=== PATIENT | male | born 1965 | race Native Hawaiian/Other Pacific Islander ===

== ENCOUNTER 2019-10-18 19:32 | Observation (INO) | payer SELFPAY ==
[~2019-10-18] VITALS: Ht 177 cm; Wt 117.4 kg
[2019-10-18] MEDS ORDERED: NITROGLYCERIN 0.4 MG SL TABS BTL 25'S SL PRN (19:45)
[2019-10-18] MEDS ORDERED: ASPIRIN 81 MG CHEW (CHILDREN'S ASA) PO ONE (19:45)
[2019-10-18 19:52] LABS: BASOPHILS % (AUTO) 0 % (0-10); EOSINOPHILS # (AUTO) 0.3 10^3/uL (0.0-0.3); EOSINOPHILS % (AUTO) 4 % (0-10); HEMATOCRIT 47 % (40-54); HEMOGLOBIN 16.2 G/DL (13.3-17.7); LYMPHOCYTES # (AUTO) 2.2 X 10^3 (1.0-4.0); LYMPHOCYTES % (AUTO) 32 % (12-44); MEAN CORPUSCULAR HEMOGLOBIN 32 PG (25-34); MEAN CORPUSCULAR HGB CONC 35 G/DL (32-36); MEAN CORPUSCULAR VOLUME 91 FL (80-99); MEAN PLATELET VOLUME 10.8 FL (7.4-10.4); MONOCYTES # (AUTO) 0.6 X 10^3 (0.0-1.0); MONOCYTES % (AUTO) 8 % (0-12); NEUTROPHILS # (AUTO) 3.8 X 10^3 (1.8-7.8); NEUTROPHILS % (AUTO) 56 % (42-75); PLATELET COUNT 119 10^3/uL (130-400); RED CELL DISTRIBUTION WIDTH 14.5 % (10.0-14.5); WHITE BLOOD COUNT 6.8 10^3/uL (4.3-11.0)
--- NOTE | 2019-10-18 19:55 | ED Chest Pain ---
General Chief Complaint: Chest Pain Stated Complaint: CHEST PAIN Source: patient (SOMEWHAT LIMITED HISTORIAN) History of Present Illness Date Seen by Provider: Oct 18, 2019 Time Seen by Provider: 19:38 Initial Comments PT ARRIVES VIA POV C/O CHEST PAIN STATES PAIN BEGAN AROUND MIDNIGHT--WAS ALREADY AWAKE WHEN PAIN BEGAN WENT TO SLEEP AND WOKE UP AT 0900 AND PAIN WAS STILL THERE PT UNABLE TO RATE PAIN PT UNABLE TO STATE IF PAIN COMES AND GOES OR IS CONSTANT PT IS UNABLE TO STATE IF ANYTHING WORSENS OR IMPROVES PAIN ON ARRIVAL DENIES SHORTNESS OF BREATH HAS HAD NONPRODUCTIVE COUGH FOR 1 MONTH, AND LATER, HE DOES STATE THAT COUGHING MAKES CHEST HURT, DOES ANY MOVING OF HIS UPPER BODY NO FEVER NO NAUSEA/VOMITING NO OTHER RELEVANT INFORMATION OBTAINABLE FROM PT PCP: --PT STATES HE IS FROM [facility]--HAD MEDICATIONS REFILLED BY ARNAUD JULIAN IN [place]. PT SIMPLY WILL NOT STATE WHETHER HE LIVES HERE, OR IF HE IS VISITING OR HOW LONG HE HAS BEEN HERE Allergies and Home Medications Allergies Coded Allergies: Penicillins (Verified Allergy, Unknown, 10/18/19) Patient Home Medication List Home Medication List Reviewed: Yes Review of Systems Review of Systems Constitutional: no symptoms reported; No chills, No diaphoresis, No dizziness, No fever; other (VERY LIMITED INFORMATION FROM PT) EENTM: No Symptoms Reported Respiratory: See HPI, Cough; Denies Shortness of Air Cardiovascular: See HPI, Chest Pain Gastrointestinal: Denies Nausea, Denies Vomiting Past Eqwhlgp-[id number]-Tmnldn Hx Past Med/Social Hx: Reviewed and Corrections made Patient Social History Alcohol Use: Denies Use Recreational Drug Use: Yes (THC) Drug of Choice: THC Smoking Status: Former Smoker (SMOKED 1 PPD, QUIT 15 YEARS AGO, PER PT ON 10/18/19) Type Used: Cigarettes Recent Foreign Travel: No Contact w/Someone Who Travel: No Past Medical History Surgeries: Yes Thyroidectomy Respiratory: No Cardiac: Yes Hypertension Neurological: No Genitourinary: No Gastrointestinal: No Musculoskeletal: No Endocrine: Yes (S/P THYROIDECTOMY--STATES WAS NOT CANCER, BUT UNABLE TO STATE WHY REMOVED) Hypothyroidsim HEENT: No Cancer: No Psychosocial: No Integumentary: No Blood Disorders: No Physical Exam Vital Signs Vital Signs - First Documented 10/18/19 19:40 Temp 36.7 Pulse 80 Resp 18 B/P (MAP) 157/99 (118) O2 Delivery Room Air Capillary Refill : Height, Weight, BMI Height: '" Weight: lbs. oz. kg; BMI Method: General Appearance: No Apparent Distress, Obese HEENT: PERRL/EOMI Neck: Full Range of Motion, Normal Inspection, Non Tender, Supple; No Carotid Bruit, No JVD Respiratory: Chest Non Tender, Normal Breath Sounds, No Accessory Muscle Use, No Respiratory Distress Cardiovascular: Regular Rate, Rhythm, No JVD, No Murmur, Normal Peripheral Pulses Gastrointestinal: No Organomegaly, Non Tender, Soft Extremity: Normal Capillary Refill, Normal Range of Motion, Non Tender, No Calf Tenderness, Pedal Edema (1+ BILATERALLY) Neurologic/Psychiatric: Alert, Oriented x3, No Motor/Sensory Deficits, Normal Mood/Affect, electronic operator II-XII Norm as Tested Skin: Normal Color, Warm/Dry; No Rash Progress/Results/Core Measures Results/Orders Lab Results Laboratory Tests Test 10/18/19 19:42 10/18/19 23:10 Range/Units White Blood Count 6.8 4.3-11.0 10^3/uL Red Blood Count 5.10 4.35-5.85 10^6/uL Hemoglobin 16.2 13.3-17.7 G/DL Hematocrit 47 40-54 % Mean Corpuscular Volume 91 80-99 FL Mean Corpuscular Hemoglobin 32 25-34 PG Mean Corpuscular Hemoglobin Concent 35 32-36 G/DL Red Cell Distribution Width 14.5 10.0-14.5 % Platelet Count 119 L 130-400 10^3/uL Mean Platelet Volume 10.8 H 7.4-10.4 FL Neutrophils (%) (Auto) 56 42-75 % Lymphocytes (%) (Auto) 32 12-44 % Monocytes (%) (Auto) 8 0-12 % Eosinophils (%) (Auto) 4 0-10 % Basophils (%) (Auto) 0 0-10 % Neutrophils # (Auto) 3.8 1.8-7.8 X 10^3 Lymphocytes # (Auto) 2.2 1.0-4.0 X 10^3 Monocytes # (Auto) 0.6 0.0-1.0 X 10^3 Eosinophils # (Auto) 0.3 0.0-0.3 10^3/uL Basophils # (Auto) 0.0 0.0-0.1 10^3/uL Prothrombin Time 13.3 12.2-14.7 SEC INR Comment 1.0 0.8-1.4 Activated Partial Thromboplast Time 33 24-35 SEC Sodium Level 139 135-145 MMOL/L Potassium Level 4.0 3.6-5.0 MMOL/L Chloride Level 106 98-107 MMOL/L Carbon Dioxide Level 22 21-32 MMOL/L Anion Gap 11 5-14 MMOL/L Blood Urea Nitrogen 11 7-18 MG/DL Creatinine 1.03 0.60-1.30 MG/DL Estimat Glomerular Filtration Rate > 60 BUN/Creatinine Ratio 11 Glucose Level 94 70-105 MG/DL Calcium Level 9.5 8.5-10.1 MG/DL Corrected Calcium 9.2 8.5-10.1 MG/DL Magnesium Level 1.9 1.6-2.4 MG/DL Total Bilirubin 0.6 0.1-1.0 MG/DL Aspartate Amino Transf (AST/SGOT) 38 H 5-34 U/L Alanine Aminotransferase (ALT/SGPT) 37 0-55 U/L Alkaline Phosphatase 80 40-136 U/L Total Creatine Kinase 659 H 30-200 U/L Creatine Kinase MB 6.4 <6.6 NG/ML Myoglobin 153.2 H 10.0-92.0 NG/ML Troponin I < 0.028 < 0.028 <0.028 NG/ML B-Type Natriuretic Peptide < 10.0 <100.0 PG/ML Total Protein 8.8 H 6.4-8.2 GM/DL Albumin 4.4 3.2-4.5 GM/DL Amylase Level 81 25-125 U/L Lipase 14 8-78 U/L Micro Results Microbiology 10/18/19 Influenza Types A,B Antigen (TYSON) - Final, Complete My Orders Orders - HI ANNE DO Cbc With Automated Diff (10/18/19 19:45) Magnesium (10/18/19 19:45) Chest 1 View, Ap/Pa Only (10/18/19 19:45) Ekg Tracing (10/18/19 19:45) Comprehensive Metabolic Panel (10/18/19 19:45) Myoglobin Serum (10/18/19 19:45) Protime With Inr (10/18/19 19:45) Partial Thromboplastin Time (10/18/19 19:45) O2 (10/18/19 19:45) Monitor-Rhythm Ecg Trace Only (10/18/19 19:45) Ed Iv/Invasive Line Start (10/18/19 19:45) Creatine Kinase (10/18/19 19:45) Creatine Kinase Mb (10/18/19 19:45) Lipase (10/18/19 19:45) Amylase (10/18/19 19:45) BNP (10/18/19 19:45) Troponin I (10/18/19 19:45) Nitroglycerin 0.4 Mg Btl 25's (Nitrostat (10/18/19 19:45) Aspirin Chewable Tablet (Baby Aspirin Ch (10/18/19 19:45) Ct Angio Chest W (10/18/19 21:16) Influenza A And B Antigens (10/18/19 21:16) Iohexol Injection (Omnipaque 350 Mg/Ml 1 (10/18/19 21:30) Received Contrast (Hold Metformin- Contr (10/18/19 21:30) Ns (Ivpb) (Sodium Chloride 0.9% Ivpb Bag (10/18/19 21:30) Ketorolac Injection (Toradol Injection) (10/18/19 22:30) Troponin I (10/18/19 22:41) Ekg Tracing (10/18/19 22:41) Enoxaparin Injection (Lovenox Injection) (10/18/19 23:45) Pantoprazole Injection (Protonix Injecti (10/18/19 23:45) Medications Given in ED Current Medications Medications Dose Ordered Sig/Denia Route Start Time Stop Time Status Last Admin Dose Admin Aspirin 324 mg ONCE ONCE PO 10/18/19 19:45 10/18/19 19:48 DC 10/18/19 19:53 324 MG Enoxaparin Sodium 100 mg ONCE ONCE SC 10/18/19 23:45 10/18/19 23:46 DC 10/18/19 23:50 100 MG Iohexol 100 ml ONCE ONCE IV 10/18/19 21:30 10/18/19 21:31 DC 10/18/19 21:50 100 ML Ketorolac Tromethamine 30 mg ONCE ONCE IVP 10/18/19 22:30 10/18/19 22:31 DC 10/18/19 22:45 30 MG Nitroglycerin 0.4 mg UD PRN SL 10/18/19 19:45 10/19/19 02:40 DC 10/18/19 19:53 0.4 MG Pantoprazole 40 mg ONCE ONCE IV 10/18/19 23:45 10/18/19 23:46 DC 10/18/19 23:49 40 MG Sodium Chloride 100 ml ONCE ONCE IV 10/18/19 21:30 10/18/19 21:31 DC 10/18/19 21:50 80 ML Vital Signs/I&O 10/18/19 10/18/19 19:40 19:40 Temp 36.7 Pulse 80 Resp 18 B/P (MAP) 157/99 (118) O2 Delivery Room Air Progress Progress Note : Progress Note GIVEN ASPIRIN AND NTG X 1--DID HAVE DROP IN BP FROM 150 SYSTOLIC DOWN TO 110, AND PT STATES NO IMPROVEMENT IN PAIN, SO OTHER NTG DOSES HELD PT LATER GIVEN TORADOL WITH MUCH IMPROVEMENT IN PAIN NO OTHER COMPLAINTS FOR REMAINDER OF ER STAY DID 3 HOUR REPEAT EKG AND TROPONIN, AND ARE NORMAL/UNCHANGED PT'S DAUGHTER ARRIVES MUCH LATER, SHORTLY PRIOR TO ADMIT, AND SHE STATES THAT HE IS HERE FROM [facility]" BECAUSE HIS DAUGHTER RECENTLY AFTER GIVING ( SHE 10/10/19 AND AND VISITATION IS THIS ) Initial ECG Impression Date: Oct 18, 2019 Initial ECG Impression Time: 19:36 Initial ECG Rate: 75 Initial ECG Rhythm: Normal Sinus Initial ECG Impression: 1st Degree AV Block Initial ECG Comparisson: No Previous ECG Available EKG : EKG Time: 22:48 Rate: 63 Rhythm: Normal Sinus ECG Comparisson: Unchanged ECG Impression: 1st Degree AV Block Diagnostic Imaging Comments CXR--NO ACUTE PROCESS, PENDING RADIOLOGIST REVIEW CT CHEST ANGIOGRAM--NO P.E. OR ACUTE PROCESS. + GALLSTONES WITHOUT ACUTE CHOLECYSTITIS, PER RADIOLOGIST REPORT AT 2205 Reviewed: Reviewed by Me Departure Communication (Admissions) 1972--SPOKE WITH DR. ROSARIO, HOSPITALIST, ACCEPTS PT FOR ADMIT. Impression Primary Impression: Chest pain Additional Impressions: HTN (hypertension) Gallstones Disposition: ADMITTED INPATIENT Condition: Improved Admissions Decision to Admit Reason: Admit from ER (General) Decision to Admit/Date: Oct 19, 2019 Time/Decision to Admit Time: 23:45 Departure-Patient Inst. Referrals: NO,LOCAL PHYSICIAN (PCP) Primary Care Physician HI ANNE DO Oct 18, 2019 19:55
[2019-10-18 20:01] LABS: PROTHROMBIN TIME PATIENT 13.3 SEC (12.2-14.7)
[2019-10-18 20:21] LABS: ALANINE AMINOTRANSFERASE 37 U/L (0-55); ALBUMIN 4.4 GM/DL (3.2-4.5); ALKALINE PHOSPHATASE 80 U/L (40-136); AMYLASE 81 U/L (25-125); BILIRUBIN,TOTAL 0.6 MG/DL (0.1-1.0); BUN/CREATININE RATIO 11; CALCIUM 9.5 MG/DL (8.5-10.1); CARBON DIOXIDE 22 MMOL/L (21-32); CHLORIDE 106 MMOL/L (98-107); CREATINE KINASE 659 U/L (30-200); CREATININE SERUM 1.03 MG/DL (0.60-1.30); GFR ESTIMATED > 60; GLUCOSE 94 MG/DL (70-105); LIPASE 14 U/L (8-78); MAGNESIUM 1.9 MG/DL (1.6-2.4); SODIUM 139 MMOL/L (135-145); TOTAL PROTEIN 8.8 GM/DL (6.4-8.2)
[2019-10-18 20:28] LABS: CREATINE KINASE MB 6.4 NG/ML (<6.6)
--- NOTE | 2019-10-18 21:11 | Diagnostic Imaging Report ---
INDICATION: Chest pain. EXAMINATION: Frontal chest was obtained at 9:00 p.m. FINDINGS: Heart and mediastinal silhouette are normal in appearance. The lungs are clear. There is no pneumothorax or pleural fluid. IMPRESSION: Negative chest. Dictated by: Dictated on workstation # [id number]
[2019-10-18] MEDS ORDERED: NS 100 ML (IVPB) BAG IV ONE (21:30)
[2019-10-18] MEDS ORDERED: IOHEXOL 350 MG/ML 100 ML (OMNIPAQUE 350) VIAL IV ONE (21:30)
[2019-10-18] MEDS ORDERED: HOLD METFORMIN - RECEIVED CONTRAST 20 ML VIAL IV SCH (21:30)
--- NOTE | 2019-10-18 22:00 | Diagnostic Imaging Report ---
INDICATION: Chest pain TECHNIQUE: Multiple contiguous axial images were obtained through the chest after uneventful bolus administration of intravenous contrast. 3D reconstructed CTA MIP acquisitions were also performed. Auto Exposure Controls were utilized during the CT exam to meet ALARA standards for radiation dose reduction. There is no prior study for comparison. The pulmonary parenchymal vessels are well-opacified with no CT evidence of pulmonary emboli. The thoracic aorta shows no evidence of aneurysm or dissection. There are coronary artery calcifications present. There is no pleural or pericardial fluid. There are incidental gallstones. There is no mediastinal or hilar adenopathy. There is no chest wall lesion. Lung parenchymal windows show no infiltrates or focal lesions. IMPRESSION: CTA chest shows no evidence of pulmonary emboli or aortic dissection or aneurysm. Coronary artery calcifications are noted which are fairly extensive. There is no acute pulmonary infiltrate. There are incidental gallstones in the gallbladder. There is a probable cyst in the right kidney. Dictated by: Dictated on workstation # [id number]
[2019-10-18] MEDS ORDERED: KETOROLAC 30 MG/ML VIAL IVP ONE (22:30)
--- NOTE | 2019-10-18 23:19 | NUR ---
REPORT RECEIVED FROM OLI PATIÑO AT THIS TIME TO ASSUME CARE OF PT.
[2019-10-18] MEDS ORDERED: ENOXAPARIN 100 MG/1 ML (LOVENOX) SYR SC ONE (23:45)
[2019-10-18] MEDS ORDERED: PANTOPRAZOLE 40 MG (PROTONIX) VIAL IV ONE (23:45)
[2019-10-19] VITALS (11 sets, daily range): BP systolic 107–144; BP diastolic 72–88
[2019-10-19] MEDS ORDERED: 1/2 NS IV SOLUTION 1,000 ML IV ONE (01:00)
[2019-10-19] MEDS ORDERED: morphine INJ 4 MG/ML 1 ML (VIAL/SYRINGE) IV PRN (02:45)
[2019-10-19] MEDS ORDERED: NITROGLYCERIN 0.4 MG SL TABS BTL 25'S SL PRN (02:45)
[2019-10-19] MEDS ORDERED: ONDANSETRON 4 MG/2 ML (SDV) Z0FRAN IV PRN (02:45)
[2019-10-19 05:49] LABS: AMPHETAMINE SCREEN, URINE NEGATIVE (NEGATIVE); BARBITURATE SCREEN URINE NEGATIVE (NEGATIVE); BENZODIAZEPINES SCREEN URINE NEGATIVE (NEGATIVE); CANNABINOID SCREEN, URINE NEGATIVE (NEGATIVE); COCAINE SCREEN URINE NEGATIVE (NEGATIVE); METHAMPHETAMINE SCREEN URINE S NEGATIVE (NEGATIVE); OPIATE SCREEN URINE NEGATIVE (NEGATIVE); TRICYCLIC ANTIDEPRESSANTS SCRE NEGATIVE (NEGATIVE)
[2019-10-19 05:50] LABS: METHADONE STAT NEGATIVE (NEGATIVE); OXYCODONE STAT NEGATIVE (NEGATIVE); PROPOXYPHENE STAT NEGATIVE (NEGATIVE)
[2019-10-19] MEDS: 1/2 NS IV SOLUTION 1,000 ML IV SCH ×3 (06:19→21:38)
[2019-10-19 06:20] LABS: BASOPHILS % (AUTO) 0 % (0-10); EOSINOPHILS # (AUTO) 0.3 10^3/uL (0.0-0.3); EOSINOPHILS % (AUTO) 4 % (0-10); HEMATOCRIT 44 % (40-54); HEMOGLOBIN 14.9 G/DL (13.3-17.7); LYMPHOCYTES # (AUTO) 1.7 X 10^3 (1.0-4.0); LYMPHOCYTES % (AUTO) 28 % (12-44); MEAN CORPUSCULAR HEMOGLOBIN 31 PG (25-34); MEAN CORPUSCULAR HGB CONC 34 G/DL (32-36); MEAN CORPUSCULAR VOLUME 92 FL (80-99); MONOCYTES # (AUTO) 0.5 X 10^3 (0.0-1.0); MONOCYTES % (AUTO) 8 % (0-12); NEUTROPHILS # (AUTO) 3.6 X 10^3 (1.8-7.8); NEUTROPHILS % (AUTO) 59 % (42-75); PLATELET COUNT 108 10^3/uL (130-400); RED CELL DISTRIBUTION WIDTH 14.4 % (10.0-14.5); WHITE BLOOD COUNT 6.1 10^3/uL (4.3-11.0)
[2019-10-19 06:44] LABS: ALANINE AMINOTRANSFERASE 33 U/L (0-55); ALBUMIN 3.8 GM/DL (3.2-4.5); ALKALINE PHOSPHATASE 60 U/L (40-136); AMYLASE 65 U/L (25-125); BILIRUBIN,TOTAL 0.8 MG/DL (0.1-1.0); BUN/CREATININE RATIO 13; CALCIUM 8.7 MG/DL (8.5-10.1); CARBON DIOXIDE 20 MMOL/L (21-32); CHLORIDE 107 MMOL/L (98-107); GFR ESTIMATED > 60; GLUCOSE 94 MG/DL (70-105); LIPASE 22 U/L (8-78); POTASSIUM 3.8 MMOL/L (3.6-5.0); SODIUM 138 MMOL/L (135-145); TOTAL PROTEIN 7.5 GM/DL (6.4-8.2)
[2019-10-19] MEDS ORDERED: FLU QUADRIvalent (5+ YOA) 2019-2020 (AFLURIA) 0.5 ML IM ONE (07:00)
[2019-10-19 08:15] LABS: CHOLESTEROL 173 MG/DL (< 200); HDL CHOLESTEROL 32 MG/DL (40-60); TRIGLYCERIDES 94 MG/DL (<150); VLDL CHOLESTEROL 19 MG/DL (5-40)
--- NOTE | 2019-10-19 09:45 | Consultation-Cardiology ---
HPI-Cardiology Cardiology Consultation: Date of Consultation 10/19/19 Time Seen by a Provider: 09:25 Date of Admission 10-18-2019 Attending Physician No Sy DO Admitting Physician Brooke,Local Physician Consulting Physician Mary Farnsworth MD HPI: Chief Complaint: Chest pain Mr. Phillips is a 54 year old male admitted to 416 from the ED with c/o CP. He reports he developed chest pain 2 days ago. Left sided, worse with cough and deep breathing. Constant, but became increasing worse yesterday. Reports unable to lie down d/t the pain, but sitting up makes it better. Reports it is localized this morning. Reproducible with deep palpation, mid-sternal to the left. Reports frequent, non-productive cough. No c/o n/v/d. No c/o fever or chills. No c/o palpitations. No c/o LE swelling. Review of Systems-Cardiology Review of Systems Constitutional: No chills, No fever Eyes: No vision change Ears/Nose/Throat: No epistaxis, No recent hearing loss Respiratory: As described under HPI Cardiovascular: As described under HPI Gastrointestinal: As described under HPI Genitourinary: No dysuria, No hematuria Musculoskeletal: no symptoms reported Skin: No rash on exposed areas, No ulcerations on exposed areas Psychiatric/Neurological: No anxiety, No depression, No seizure, No focal weakness, No syncope Hematologic: No bleeding abnormalities [id number]-[id number] Hx Patient Social History Alcohol Use: Denies Use Recreational Drug Use: Yes (THC) Drug of Choice: THC Smoking Status: Former Smoker (SMOKED 1 PPD, QUIT 15 YEARS AGO, PER PT ON 10/18/19) Type Used: Cigarettes 2nd Hand Smoke Exposure: No Recent Foreign Travel: No Recent Infectious Disease Expo: No Hospitalization with Isolation: Denies Past Medical History PMH As described under Assessment. Family Medical History Family Medical History: Denies any family h/o CAD. Allergies and Home Medications Allergies Coded Allergies: Penicillins (Verified Allergy, Unknown, 10/18/19) Physical Exam-Cardiology Physical Exam Vital Signs/I&O 10/19/19 10/19/19 10/19/19 10/19/19 00:44 01:09 01:09 01:26 Temp 36.7 36.3 36.3 Pulse 80 66 66 62 Resp 18 18 18 18 B/P (MAP) 135/92 (118) 132/83 (99) 132/83 125/82 (96) Pulse Ox 99 98 98 97 O2 Delivery Room Air Room Air Room Air Room Air 10/19/19 10/19/19 10/19/19 10/19/19 01:32 01:42 01:56 02:21 Pulse 60 61 61 63 Resp 18 20 20 B/P (MAP) 107/72 (84) 119/81 (94) 121/78 (92) Pulse Ox 96 96 94 O2 Delivery Room Air Room Air Room Air 10/19/19 10/19/19 10/19/19 10/19/19 02:51 03:35 04:51 07:00 Temp 36.3 36.4 Pulse 61 70 54 Resp 20 18 B/P (MAP) 122/77 (92) 115/75 (88) Pulse Ox 97 98 O2 Delivery Room Air Room Air Room Air 10/19/19 08:00 Temp 36.6 Pulse 63 Resp 20 B/P (MAP) 125/76 (92) Pulse Ox 98 O2 Delivery Room Air Capillary Refill : Less Than 3 Seconds Constitutional: AAO x 3, well-developed, well-nourished HEENT: PERRL, hearing is well preserved, oral hygience is good Neck: No carotid bruit; carotid pulses are 2 + bilaterally Respiratory: No accessory muscle use, No respiratory distress; chest expansion is symmetric, chest is bilaterally symmetric, lungs clear to auscultation Cardiovascular: regular rate-rhythm; No JVD; S1 and S2 Gastrointestinal: soft, round, audible bowel sounds Extremities: other (mild bilat LE swelling) Neurologic/Psychiatric: grossly intact (moves all extremities) Skin: No rash on exposed areas, No ulcerations on exposed areas Data Review Labs Laboratory Tests 10/18/19 19:42: White Blood Count 6.8, Red Blood Count 5.10, Hemoglobin 16.2, Hematocrit 47, Mean Corpuscular Volume 91, Mean Corpuscular Hemoglobin 32, Mean Corpuscular Hemoglobin Concent 35, Red Cell Distribution Width 14.5, Platelet Count 119L, Mean Platelet Volume 10.8H, Neutrophils (%) (Auto) 56, Lymphocytes (%) (Auto) 32, Monocytes (%) (Auto) 8, Eosinophils (%) (Auto) 4, Basophils (%) (Auto) 0, Neutrophils # (Auto) 3.8, Lymphocytes # (Auto) 2.2, Monocytes # (Auto) 0.6, Eosinophils # (Auto) 0.3, Basophils # (Auto) 0.0, Prothrombin Time 13.3, INR Comment 1.0, Activated Partial Thromboplast Time 33, Sodium Level 139, Potassium Level 4.0, Chloride Level 106, Carbon Dioxide Level 22, Anion Gap 11, Blood Urea Nitrogen 11, Creatinine 1.03, Estimat Glomerular Filtration Rate > 60, BUN/Creatinine Ratio 11, Glucose Level 94, Calcium Level 9.5, Corrected Calcium 9.2, Magnesium Level 1.9, Total Bilirubin 0.6, Aspartate Amino Transf (AST/SGOT) 38H, Alanine Aminotransferase (ALT/SGPT) 37, Alkaline Phosphatase 80, Total Creatine Kinase 659H, Creatine Kinase MB 6.4, Myoglobin 153.2H, Troponin I < 0.028, B-Type Natriuretic Peptide < 10.0, Total Protein 8.8H, Albumin 4.4, Mónica lase Level 81, Lipase 14 10/18/19 23:10: Troponin I < 0.028 10/19/19 05:20: Urine Opiates Screen NEGATIVE, Urine Oxycodone Screen NEGATIVE, Urine Methadone Screen NEGATIVE, Urine Propoxyphene Screen NEGATIVE, Urine Barbiturates Screen NEGATIVE, Ur Tricyclic Antidepressants Screen NEGATIVE, Urine Phencyclidine Screen NEGATIVE, Urine Amphetamines Screen NEGATIVE, Urine Methamphetamines Screen NEGATIVE, Urine Benzodiazepines Screen NEGATIVE, Urine Cocaine Screen NEGATIVE, Urine Cannabinoids Screen NEGATIVE 10/19/19 05:34: Sodium Level 138, Potassium Level 3.8, Chloride Level 107, Carbon Dioxide Level 20L, Anion Gap 11, Blood Urea Nitrogen 12, Creatinine 0.90, Estimat Glomerular Filtration Rate > 60, BUN/Creatinine Ratio 13, Glucose Level 94, Calcium Level 8.7, Corrected Calcium 8.9, Total Bilirubin 0.8, Aspartate Amino Transf (AST/SGOT) 31, Alanine Aminotransferase (ALT/SGPT) 33, Alkaline Phosphatase 60, Total Protein 7.5, Albumin 3.8, Amylase Level 65, Lipase 22, Triglycerides Level 94, Cholesterol Level 173, LDL Cholesterol Direct 136H, VLDL Cholesterol 19, HDL Cholesterol 32L 10/19/19 05:39: White Blood Count 6.1, Red Blood Count 4.79, Hemoglobin 14.9, Hematocrit 44, Mean Corpuscular Volume 92, Mean Corpuscular Hemoglobin 31, Mean Corpuscular Hemoglobin Concent 34, Red Cell Distribution Width 14.4, Platelet Count 108L, Me an Platelet Volume 11.0H, Neutrophils (%) (Auto) 59, Lymphocytes (%) (Auto) 28, Monocytes (%) (Auto) 8, Eosinophils (%) (Auto) 4, Basophils (%) (Auto) 0, Neutrophils # (Auto) 3.6, Lymphocytes # (Auto) 1.7, Monocytes # (Auto) 0.5, Eosinophils # (Auto) 0.3, Basophils # (Auto) 0.0 Microbiology 10/18/19 Influenza Types A,B Antigen (TYSON) - Final, Complete Laboratory Tests 10/18/19 19:42 10/19/19 05:34 10/19/19 05:39 Radiology NAME: YARITZA COLBERT [facility] REC#: [id number] PT STATUS: REG ER : 1965 PHYSICIAN: HI ANNE DO ADMIT DATE: 10/18/19/ER Signed Date of Exam:10/18/19 CT ANGIO CHEST W INDICATION: Chest pain TECHNIQUE: Multiple contiguous axial images were obtained through the chest after uneventful bolus administration of intravenous contrast. 3D reconstructed CTA MIP acquisitions were also performed. Auto Exposure Controls were utilized during the CT exam to meet ALARA standards for radiation dose reduction. There is no prior study for comparison. The pulmonary parenchymal vessels are well-opacified with no CT evidence of pulmonary emboli. The thoracic aorta shows no evidence of aneurysm or dissection. There are coronary artery calcifications present. There is no pleural or pericardial fluid. There are incidental gallstones. There is no mediastinal or hilar adenopathy. There is no chest wall lesion. Lung parenchymal windows show no infiltrates or focal lesions. IMPRESSION: CTA chest shows no evidence of pulmonary emboli or aortic dissection or aneurysm. Coronary artery calcifications are noted which are fairly extensive. There is no acute pulmonary infiltrate. There are incidental gallstones in the gallbladder. There is a probable cyst in the right kidney. Dictated by: Dictated on workstation # [id number] Dict: 10/18/19 2155 Trans: 10/18/19 2216 MAGDALENA [id number] Interpreted by: ALE IBARRA MD Electronically signed by: ALE IBARRA MD 10/18/19 2060 ECG Impression ECG Initial ECG Rhythm: Normal Sinus Initial ECG Impression: 1st Degree AV Block A/P-Cardiology Assessment/Admission Diagnosis Chest pain of undetermined etiology - no evidence of ACS HTN H/O thyroidectomy d/t "tumor" - thyroid replacement Gallstones in the gallbladder seen on CTA of 10-19-2019 Discussion and Recomendations Chest pain of undetermined etiology with no evidence of ACS thus far Based on c/o and risk factors as noted above advise MPI to eval perfusion Advise echo to eval structure Continue ASA Management of gallstones seen on CT with surgical/medical services Monitor lab Replace electrolytes as indicated We would like to thank medical services for this consult Further recs will be based on hospital course Clinical Quality Measures AMI/AHF: ASA po Prior to arrival: No DVT/VTE Risk/Contraindication: Risk Factor Score Per Nursin RFS Level Per Nursing on Admit: 1=Low/No VTE PPX NANCY OMER Oct 19, 2019 09:45
--- NOTE | 2019-10-19 09:45 | Consultation - Surgery ---
[facility] 10/19/19 0945: History of Present Illness History of Present Illness Patient Consulted On(lilli/time) 10/19/19 09:30 Date Seen by Provider: Oct 19, 2019 Time Seen by Provider: 09:15 Reason for Visit: cholelithiasis found incidentally on CT History of Present Illness This a 54 y/o male who presented to the ED with left sided chest pain yesterday. The pain onset yesterday morning, is worse with coughing, moving to his left side, rasing his LUE. Denies any associated sx including SOB, N/V, abd pain, D, constipation, fever, or chills. Pt states he has been coughing intermittently for 1 month which is sometimes dry and sometimes productive. Denies any medication changes including statins and YUSUF-I, other recent illness, or any other concerns. Currently, pt states his CP has mostly resolved, w/ only minimal residual pain. Regarding his gallstones, pt states he has never had any upper abd pain regardless of the type of food he eats (e.g fatty foods), denies any pruritis, j aundice, abd pain radiating to his back and shoulder, no epigastric pain, nausea, or vomiting. Pt has recently moved to [place], and is unsure of whether he'll stay here or move soon. Allergies and Home Medications Allergies Coded Allergies: Penicillins (Verified Allergy, Unknown, 10/18/19) Home Medications Amlodipine Besylate 5 Mg Tablet, 5 MG PO DAILY, (Reported) Atorvastatin Calcium 80 Mg Tablet, 80 MG PO HS Prescribed by: MIGUEL CARRION on 10/20/19 1100 Enalapril Maleate 20 Mg Tablet, 20 MG PO DAILY, (Reported) Levothyroxine Sodium 150 Mcg Tablet, 150 MCG PO DAILY, (Reported) Past Aovmtms-Qhukpt-Ddkbos Hx Patient Social History Alcohol Use: Denies Use Recreational Drug Use: Yes (THC) Drug of Choice: THC Smoking Status: Former Smoker (SMOKED 1 PPD, QUIT 15 YEARS AGO, PER PT ON 10/18/19) Type Used: Cigarettes 2nd Hand Smoke Exposure: No Recent Foreign Travel: No Contact w/Someone Who Travel: No Recent Infectious Disease Expo: No Recent Hopitalizations: No Seasonal Allergies Seasonal Allergies: No Surgeries History of Surgeries: Yes Surgeries: Thyroidectomy Respiratory History of Respiratory Disorde: No Cardiovascular History of Cardiac Disorders: Yes Cardiac Disorders: Hypertension Neurological History of Neurological Disord: No Genitourinary History of Genitourinary Disor: No Gastrointestinal History of Gastrointestinal Di: No Musculoskeletal History of Musculoskeletal Dis: No Endocrine History of Endocrine Disorders: Yes (S/P THYROIDECTOMY--STATES WAS NOT CANCER, BUT UNABLE TO STATE WHY REMOVED) Endocrine Disorders: Hypothyroidsim HEENT History of HEENT Disorders: No Cancer History of Cancer: No Psychosocial History of Psychiatric Problem: No Integumentary History of Skin or Integumenta: No Blood Transfusions History of Blood Disorders: No Review of Systems-General Constitutional: No chills, No fever Respiratory: No cough, No dyspnea on exertion Cardiovascular: No chest pain, No palpitations Gastrointestinal: No abdominal pain, No constipation, No diarrhea, No dysphagia, No nausea, No vomiting Genitourinary: No dysuria, No frequency Musculoskeletal: No back pain, No muscle pain, No muscle cramps, No muscle weakness; other (chest wall pain) Physical Exam-General Problems Physical Exam Vital Signs Vital Signs - First Documented 10/18/19 10/19/19 19:40 00:44 Temp 36.7 Pulse 80 Resp 18 B/P (MAP) 157/99 (118) Pulse Ox 99 O2 Delivery Room Air Capillary Refill : Less Than 3 Seconds General Appearance: WD/WN, no apparent distress, obese HEENT: normal ENT inspection Neck: supple Respiratory: no respiratory distress, no accessory muscle use, other (mild TTP of left chest wall near upper sternochondral joints) Cardiovascular: regular rate, rhythm, no JVD Gastrointestinal: non tender, soft, no organomegaly, no pulsatile mass; No distended, No guarding, No rebound, No tenderness Extremities: non-tender, normal inspection Neurologic/Psychiatric: alert, oriented x 3 Skin: normal color, warm/dry Lymphatic: no adenopathy Data Review Labs Laboratory Tests 10/18/19 19:42: White Blood Count 6.8, Red Blood Count 5.10, Hemoglobin 16.2, Hematocrit 47, Mean Corpuscular Volume 91, Mean Corpuscular Hemoglobin 32, Mean Corpuscular Hemoglobin Concent 35, Red Cell Distribution Width 14.5, Platelet Count 119L, Mean Platelet Volume 10.8H, Neutrophils (%) (Auto) 56, Lymphocytes (%) (Auto) 32, Monocytes (%) (Auto) 8, Eosinophils (%) (Auto) 4, Basophils (%) (Auto) 0, Neutrophils # (Auto) 3.8, Lymphocytes # (Auto) 2.2, Monocytes # (Auto) 0.6, Eosinophils # (Auto) 0.3, Basophils # (Auto) 0.0, Prothrombin Time 13.3, INR Comment 1.0, Activated Partial Thromboplast Time 33, Sodium Level 139, Potassium Level 4.0, Chloride Level 106, Carbon Dioxide Level 22, Anion Gap 11, Blood Urea Nitrogen 11, Creatinine 1.03, Estimat Glomerular Filtration Rate > 60, BUN/Creatinine Ratio 11, Glucose Level 94, Calcium Level 9.5, Corrected Calcium 9.2, Magnesium Level 1.9, Total Bilirubin 0.6, Aspartate Amino Transf (AST/SGOT) 38H, Alanine Aminotransferase (ALT/SGPT) 37, Alkaline Phosphatase 80, Total Creatine Kinase 659H, Creatine Kinase MB 6.4, Myoglobin 153.2H, Troponin I < 0.028, B-Type Natriuretic Peptide < 10.0, Total Protein 8.8H, Albumin 4.4, Amylase Level 81, Lipase 14 10/18/19 23:10: Troponin I < 0.028 10/19/19 05:20: Urine Opiates Screen NEGATIVE, Urine Oxycodone Screen NEGATIVE, Urine Methadone Screen NEGATIVE, Urine Propoxyphene Screen NEGATIVE, Urine Barbiturates Screen NEGATIVE, Ur Tricyclic Antidepressants Screen NEGATIVE, Urine Phencyclidine Screen NEGATIVE, Urine Amphetamines Screen NEGATIVE, Urine Methamphetamines Screen NEGATIVE, Urine Benzodiazepines Screen NEGATIVE, Urine Cocaine Screen NEGATIVE, Urine Cannabinoids Screen NEGATIVE 10/19/19 05:34: Sodium Level 138, Potassium Level 3.8, Chloride Level 107, Carbon Dioxide Level 20L, Anion Gap 11, Blood Urea Nitrogen 12, Creatinine 0.90, Estimat Glomerular Filtration Rate > 60, BUN/Creatinine Ratio 13, Glucose Level 94, Calcium Level 8.7, Corrected Calcium 8.9, Total Bilirubin 0.8, Aspartate Amino Transf (AST/SGOT) 31, Alanine Aminotransferase (ALT/SGPT) 33, Alkaline Phosphatase 60, Total Protein 7.5, Albumin 3.8, Amylase Level 65, Lipase 22, Triglycerides Level 94, Cholesterol Level 173, LDL Cholesterol Direct 136H, VLDL Cholesterol 19, HDL Cholesterol 32L 10/19/19 05:39: White Blood Count 6.1, Red Blood Count 4.79, Hemoglobin 14.9, Hematocrit 44, Mean Corpuscular Volume 92, Mean Corpuscular Hemoglobin 31, Mean Corpuscular Hemoglobin Concent 34, Red Cell Distribution Width 14.4, Platelet Count 108L, Mean Platelet Volume 11.0H, Neutrophils (%) (Auto) 59, Lymphocytes (%) (Auto) 28, Monocytes (%) (Auto) 8, Eosinophils (%) (Auto) 4, Basophils (%) (Auto) 0, Neutrophils # (Auto) 3.6, Lymphocytes # (Auto) 1.7, Monocytes # (Auto) 0.5, Eosinophils # (Auto) 0.3, Basophils # (Auto) 0.0 Microbiology 10/18/19 Influenza Types A,B Antigen (TYSON) - Final, Complete Assessment/Plan Assessment/Plan Assessment/Plan Asymptomatic cholelithiasis Chest pain of unknown etiology w/ elevated total creatine kinase and myoglobin, normal Trop, and no evidence of ACS Dyslipidemia, poorly controlled HTN, poorly controlled Thyroidectomy Chest pain likely MSK vs ischemic, does not appear to be related to GB issues Cardiology plan for a stress today Recommend conservative management of cholelithiasis with plan for elective cholecystectomy later down the line Clinical Quality Measures AMI/AHF: ASA po Prior to arrival: No DVT/VTE Risk/Contraindication: Risk Factor Score Per Nursin RFS Level Per Nursing on Admit: 1=Low/No VTE PPX DEBRA ORTEGA DO 10/20/19 1423: History of Present Illness History of Present Illness History of Present Illness 54 year old male with left sided chest pain that began yesterday. Pain stays there. No radiation of pain. Moving and coughing makes pain worse. Nothing makes better. Patient has had cough for about a month. Only occaisonally being productive. patient had a cta done demonstrating gallstones and u/s showing galstones but no features suggestive of cholecystitis. Allergies and Home Medications Allergies Coded Allergies: Penicillins (Verified Allergy, Unknown, 10/18/19) Home Medications Amlodipine Besylate 5 Mg Tablet, 5 MG PO DAILY, (Reported) Atorvastatin Calcium 80 Mg Tablet, 80 MG PO HS Prescribed by: MIGUEL CARRION on 10/20/19 1100 Enalapril Maleate 20 Mg Tablet, 20 MG PO DAILY, (Reported) Levothyroxine Sodium 150 Mcg Tablet, 150 MCG PO DAILY, (Reported) Patient Home Medication List Home Medication List Reviewed: Yes Past Wzvglmh-Qsbjjq-Cwfcdm Hx Reviewed Nursing Assessment Reviewed/Agree w Nursing PMH: Yes Family Medical History Significant Family History: No Pertinent Family Hx Review of Systems-General Constitutional: No chills, No fever EENTM: No hearing loss, No ear pain, No blurred vision Respiratory: cough; No dyspnea on exertion Cardiovascular: chest pain; No palpitations Gastrointestinal: No abdominal pain, No constipation, No nausea, No vomiting Musculoskeletal: No back pain, No joint pain, No muscle pain, No muscle cramps, No muscle weakness; other (chest wall pain) Skin: No change in color, No change in hair/nails Psychiatric/Neurological: Denies Anxiety, Denies Depressed Physical Exam-General Problems Physical Exam General Appearance: WD/WN, no apparent distress HEENT: PERRL/EOMI, normal ENT inspection Neck: non-tender, supple, normal inspection Respiratory: chest non-tender, no respiratory distress, no accessory muscle use, other (mild TTP of left chest wall near upper sternochondral joints) Cardiovascular: regular rate, rhythm, no JVD Gastrointestinal: non tender, soft, no organomegaly, no pulsatile mass Rectal: deferred Back: no CVA tenderness, no vertebral tenderness Extremities: non-tender, normal inspection Neurologic/Psychiatric: fisher trot line II-XII nml as tested, no motor/sensory deficits, alert, normal mood/affect, oriented x 3 Skin: normal color, warm/dry Lymphatic: no adenopathy Assessment/Plan Assessment/Plan Assessment/Plan Asymptomatic cholelithiasis Chest pain of unknown etiology w/ elevated total creatine kinase and myoglobin, normal Trop, and no evidence of ACS Dyslipidemia, poorly controlled HTN, poorly controlled Cough Thyroidectomy cardiac workup, chest pain could be musculoskeletal from cough last month he's had cholelithiasis no evidence of cholecystitis, symptoms await cardiac workup no surgical intervention at this time. Supervisory-Addendum Brief Verification & Attestation Participated in pt care: history, MDM, physical Personally performed: exam, history, MDM, supervision of care Care discussed with: Medical Student Procedures: n/a Results interpretation: Verified all documentation Verification and Attestation of Medical Student E/M Service A medical student performed and documented this service in my presence. I reviewed and verified all information documented by the medical student and made modifications to such information, when appropriate. I personally performed the physical exam and medical decision making. Debra Ortega, Oct 19, 2019,18:27 [facility] Oct 19, 2019 09:45 DEBRA ORTEGA DO Oct 20, 2019 14:23
[2019-10-19] MEDS: PANTOPRAZOLE 40 MG (PROTONIX) VIAL IV SCH (09:48)
[2019-10-19] MEDS: ASPIRIN E.C. 81 MG (ECOTRIN) TAB PO SCH (09:48)
--- NOTE | 2019-10-19 10:24 | History & Physical-Hospitalist ---
History of Present Illness HPI/Chief Complaint Alan Leonard is a 54-year-old [place] male with past medical history of hypertension and obesity who presented with chest pain. He reports that the pain is in the center of his chest and is worsened by coughing. He denies any radiation of the pain. He denies any associated nausea or diaphoresis. He denies shortness of breath. He denies any fevers or chills. He denies any abdominal pain. He is a nonsmoker. He rarely drinks alcohol. Source: patient Exam Limitations: no limitations Date Seen 10/19/19 Time Seen by a Provider: 09:40 Attending Physician No Sy DO PCP No,Local Physician Referring Physician Date of Admission Oct 18, 2019 at 23:45 Home Medications & Allergies Home Medications Reviewed patient Home Medication Reconciliation performed by pharmacy medication reconciliations ground control approach technician and/or nursing. Patients Allergies have been reviewed. Allergies Allergies Coded Allergies Penicillins (Verified Allergy, Unknown, 10/18/19) Past Ioxwjtm-Mfntlp-Vfubcq Hx Past Med/Social Hx: Reviewed and Corrections made Patient Social History Alcohol Use: Denies Use Recreational Drug Use: Yes (THC) Drug of Choice: THC Smoking Status: Former Smoker (SMOKED 1 PPD, QUIT 15 YEARS AGO, PER PT ON 10/18/19) Type Used: Cigarettes 2nd Hand Smoke Exposure: No Recent Foreign Travel: No Contact w/other who traveled: No Recent Hopitalizations: No Recent Infectious Disease Expo: No Seasonal Allergies Seasonal Allergies: No Past Medical History Surgeries: Thyroidectomy Cardiac: Hypertension Endocrine: Hypothyroidsim History of Blood Disorders: No Review of Systems Constitutional: no symptoms reported EENTM: no symptoms reported Respiratory: cough Cardiovascular: chest pain Gastrointestinal: no symptoms reported Genitourinary: no symptoms reported Musculoskeletal: no symptoms reported Skin: no symptoms reported Psychiatric/Neurological: No Symptoms Reported Physical Exam Physical Exam Vital Signs Vital Signs - First Documented 10/18/19 10/19/19 19:40 00:44 Temp 36.7 Pulse 80 Resp 18 B/P (MAP) 157/99 (118) Pulse Ox 99 O2 Delivery Room Air Capillary Refill : Less Than 3 Seconds Height, Weight, BMI Height: '" Weight: lbs. oz. kg; 37.47 BMI Method: General Appearance: No Apparent Distress, Obese HEENT: PERRL/EOMI, Pharynx Normal Neck: Normal Inspection, Supple Respiratory: Lungs Clear, Normal Breath Sounds, No Respiratory Distress, Other (chest tender to palpation around the sternum) Cardiovascular: Regular Rate, Rhythm, No Edema, No Murmur Gastrointestinal: Normal Bowel Sounds, Non Tender, Soft Extremity: Normal Inspection, Non Tender, No Pedal Edema Neurologic/Psychiatric: Alert, Oriented x3, No Motor/Sensory Deficits, Normal Mood/Affect Results Results/Procedures Labs Laboratory Tests 10/18/19 19:42 10/19/19 05:34 10/19/19 05:39 Patient resulted labs reviewed. Imaging: Reviewed Imaging Report Assessment/Plan Admission Diagnosis Chest pain Admission Status: Observation Assessment and Plan Chest pain coronary atherosclerosis Hypertension Obesity Dyslipidemia troponin remains negative EKG unremarkable CT showed coronary atherosclerosis Cardiology consulted, appreciate assistance Possible stress test today Lipid panel with elevated LDL and low HDL Given a loading dose of aspirin, continue daily low-dose aspirin begin Lipitor Gallstones Clinically significant, no acute management needs DVT prophylaxis: Lovenox Diagnosis/Problems Diagnosis/Problems (1) Chest pain Status: Acute (2) Essential hypertension Status: Chronic (3) Dyslipidemia Status: Chronic (4) Obesity Status: Chronic Qualifiers: Obesity type: due to excess calories Serious obesity comorbidity presence: with serious comorbidity Body mass index: BMI 37.0-37.9 (5) Coronary atherosclerosis Status: Chronic Clinical Quality Measures AMI/AHF: ASA po Prior to arrival: No DVT/VTE Risk/Contraindication: Risk Factor Score Per Nursin RFS Level Per Nursing on Admit: 1=Low/No VTE PPX MIGUEL CARRION MD Oct 19, 2019 10:23
[2019-10-19] MEDS ORDERED: REGADENOSON 0.4 MG/5 ML SYR (LEXISCAN) IV ONE ×2 (12:50→13:45)
[2019-10-19] MEDS ORDERED: LEVO150T6 PO (14:43)
[2019-10-19] MEDS ORDERED: ENAL20TA PO (14:43)
[2019-10-19] MEDS ORDERED: AMLO5TAB9 PO (14:43)
--- NOTE | 2019-10-19 14:44 | NUR ---
SPOKE WITH THE PT (HE HAD HIS MEDS- 1 WAS A BOTTLE FROM THE [place], AND 2 WERE IN BAGGIES FROM THE [facility]) WENT THRU THE EXT MED HISTORY TO COMPLETE THE MED REC. AMLODIPINE AND ENALAPRIL WERE BOTH FILLED FROM [facility]. I DID NOT SEE A DATE ON THEM
--- NOTE | 2019-10-19 14:49 | NUR ---
Pt is [employer] and currently NPO. In the future would like Communion.
--- NOTE | 2019-10-19 15:31 | Diagnostic Imaging Report ---
PROCEDURE: US Abdomen, limited. TECHNIQUE: Multiple realtime grayscale images were obtained over the abdomen in various projections. INDICATION: Gallstones. Chest pain. COMPARISON: CTA chest of 10/18/2019. FINDINGS: Liver is heterogeneous in echogenicity with surface nodularity suggestive of cirrhosis. No focal hepatic lesion is present. Main portal vein is patent with flow velocities of 11 cm/s which can be seen with portal hypertension. Shadowing gallstones are noted. No pericholecystic fluid or gallbladder wall thickening. The common bile duct measures up to 0.2 cm in diameter. No intrahepatic biliary dilation. Pancreas is obscured by overlying bowel gas. The right kidney is normal in size. No hydronephrosis, shadowing calculi, or suspicious mass lesion. IMPRESSION: 1. Cholelithiasis. No additional features to suggest acute cholecystitis or biliary obstruction. 2. Heterogeneous nodular liver suggests cirrhosis. Dictated by: Dictated on workstation # [id number]
--- NOTE | 2019-10-19 16:24 | STRESS TEST ---
DATE OF SERVICE: 10/19/2019 RESTING AND POST REGADENOSON TECHNETIUM-99M TETROFOSMIN SPECT CT IMAGING ORDERING PHYSICIAN: Courtney العراقي APRN PRIMARY PHYSICIAN: Dr. Sy. CLINICAL DIAGNOSIS: Chest pain. Baseline images were carried out after injection of 9.61 mCi of technetium-99m Tetrofosmin. This was followed by 0.4 mg regadenoson and 33 mCi of technetium-99m Tetrofosmin for stress imaging. The electrocardiogram showed sinus rhythm and did not change significantly with regadenoson infusion. The patient tolerated the procedure well. Review of images at rest and following stress does not indicate any significant perfusion defects consistent with significant myocardial ischemia or infarction. Gated images show normal global left ventricular systolic function with normal regional wall motion. Left ventricular ejection fraction is calculated to be 69%. Left ventricular end diastolic volume is 76 mL. TID is absent (0.99). CONCLUSIONS: 1. No evidence of any significant myocardial ischemia or infarction on study. 2. Normal regional wall motion. 3. Normal global left ventricular systolic function with a calculated ejection fraction of 69%. Job ID: [id number] DocumentID: [id number] Dictated Date: 10/19/2019 16:08:01 Hotel Attendant Date: 10/19/2019 16:23:45 Dictated By: ARACELI FAJARDO MD, MA, FACP, FACC,
--- NOTE | 2019-10-19 18:13 | Consultation-Cardiology ---
HPI-Cardiology Cardiology Consultation: Date of Consultation 10/19/19 Time Seen by a Provider: 15:50 Date of Admission Attending Physician No Sy DO Admitting Physician No,Local Physician Consulting Physician ARACELI FAJARDO MD, MA, FACP, FACC, FSCAI, CCDS HPI: Chief Complaint: Chest pain HPI Mr. Phillips is a 54 year old male admitted to 416 from the ED with c/o CP. He reports he developed chest pain 2 days ago. Left sided, worse with cough and de ep breathing. Constant, but became increasing worse yesterday. Reports unable to lie down d/t the pain, but sitting up makes it better. Reports it is localized this morning. Reproducible with deep palpation, mid-sternal to the left. Reports frequent, non-productive cough. No c/o n/v/d. No c/o fever or chills. No c/o palpitations. No c/o LE swelling. Review of Systems-Cardiology Review of Systems Constitutional: No chills, No fever Eyes: No vision change Ears/Nose/Throat: No epistaxis, No recent hearing loss Respiratory: As described under HPI Cardiovascular: As described under HPI Gastrointestinal: As described under HPI Genitourinary: No dysuria, No hematuria Musculoskeletal: no symptoms reported Skin: No rash on exposed areas, No ulcerations on exposed areas Psychiatric/Neurological: No anxiety, No depression, No seizure, No focal weakness, No syncope Hematologic: No bleeding abnormalities FOQ-Quwqiw-Eygfbu Hx Patient Social History Alcohol Use: Denies Use Recreational Drug Use: Yes (THC) Drug of Choice: THC Smoking Status: Former Smoker (SMOKED 1 PPD, QUIT 15 YEARS AGO, PER PT ON 10/18/19) Type Used: Cigarettes 2nd Hand Smoke Exposure: No Recent Foreign Travel: No Recent Infectious Disease Expo: No Hospitalization with Isolation: Denies Past Medical History PMH As described under Assessment. Family Medical History Family Medical History: Denies any family h/o CAD. Allergies and Home Medications Allergies Coded Allergies: Penicillins (Verified Allergy, Unknown, 10/18/19) Home Medications Amlodipine Besylate 5 Mg Tablet, 5 MG PO DAILY, (Reported) Enalapril Maleate 20 Mg Tablet, 20 MG PO DAILY, (Reported) Levothyroxine Sodium 150 Mcg Tablet, 150 MCG PO DAILY, (Reported) Patient Home Medication List Home Medication List Reviewed: Yes Physical Exam-Cardiology Physical Exam Vital Signs/I&O 10/19/19 10/19/19 10/19/19 10/19/19 07:00 08:00 08:00 12:00 Temp 36.6 36.5 Pulse 54 63 61 Resp 20 18 B/P (MAP) 125/76 (92) 127/75 (92) Pulse Ox 98 98 95 O2 Delivery Room Air Room Air Room Air 10/19/19 10/19/19 13:00 15:19 Temp 36.4 Pulse 65 64 Resp 18 B/P (MAP) 144/88 (106) Pulse Ox 96 O2 Delivery Room Air Capillary Refill : Less Than 3 Seconds Constitutional: AAO x 3, well-developed, well-nourished HEENT: PERRL, hearing is well preserved, oral hygience is good Neck: No carotid bruit; carotid pulses are 2 + bilaterally Respiratory: No accessory muscle use, No respiratory distress; chest expansion is symmetric, chest is bilaterally symmetric, lungs clear to auscultation Cardiovascular: regular rate-rhythm; No JVD; S1 and S2 Gastrointestinal: soft, round, audible bowel sounds Extremities: other (mild bilat LE swelling) Neurologic/Psychiatric: grossly intact (moves all extremities) Skin: No rash on exposed areas, No ulcerations on exposed areas Lymphatic: no adenopathy Data Review Labs Laboratory Tests 10/18/19 19:42: White Blood Count 6.8, Red Blood Count 5.10, Hemoglobin 16.2, Hematocrit 47, Mean Corpuscular Volume 91, Mean Corpuscular Hemoglobin 32, Mean Corpuscular Hemoglobin Concent 35, Red Cell Distribution Width 14.5, Platelet Count 119L, Mean Platelet Volume 10.8H, Neutrophils (%) (Auto) 56, Lymphocytes (%) (Auto) 32, Monocytes (%) (Auto) 8, Eosinophils (%) (Auto) 4, Basophils (%) (Auto) 0, Neutrophils # (Auto) 3.8, Lymphocytes # (Auto) 2.2, Monocytes # (Auto) 0.6, Eosinophils # (Auto) 0.3, Basophils # (Auto) 0.0, Prothrombin Time 13.3, INR Comment 1.0, Activated Partial Thromboplast Time 33, Sodium Level 139, Potassium Level 4.0, Chloride Level 106, Carbon Dioxide Level 22, Anion Gap 11, Blood Urea Nitrogen 11, Creatinine 1.03, Estimat Glomerular Filtration Rate > 60, BUN/Creatinine Ratio 11, Glucose Level 94, Calcium Level 9.5, Corrected Calcium 9.2, Magnesium Level 1.9, Total Bilirubin 0.6, Aspartate Amino Transf (AST/SGOT) 38H, Alanine Aminotransferase (ALT/SGPT) 37, Alkaline Phosphatase 80, Total Creatine Kinase 659H, Creatine Kinase MB 6.4, Myoglobin 153.2H, Troponin I < 0.028, B-Type Natriuretic Peptide < 10.0, Total Protein 8.8H, Albumin 4.4, Amylase Level 81, Lipase 14 10/18/19 23:10: Troponin I < 0.028 10/19/19 05:20: Urine Opiates Screen NEGATIVE, Urine Oxycodone Screen NEGATIVE, Urine Methadone Screen NEGATIVE, Urine Propoxyphene Screen NEGATIVE, Urine Barbiturates Screen NEGATIVE, Ur Tricyclic Antidepressants Screen NEGATIVE, Urine Phencyclidine Screen NEGATIVE, Urine Amphetamines Screen NEGATIVE, Urine Methamphetamines Screen NEGATIVE, Urine Benzodiazepines Screen NEGATIVE, Urine Cocaine Screen NEGATIVE, Urine Cannabinoids Screen NEGATIVE 10/19/19 05:34: Sodium Level 138, Potassium Level 3.8, Chloride Level 107, Carbon Dioxide Level 20L, Anion Gap 11, Blood Urea Nitrogen 12, Creatinine 0.90, Estimat Glomerular Filtration Rate > 60, BUN/Creatinine Ratio 13, Glucose Level 94, Calcium Level 8.7, Corrected Calcium 8.9, Total Bilirubin 0.8, Aspartate Amino Transf (AST/SGOT) 31, Alanine Aminotransferase (ALT/SGPT) 33, Alkaline Phosphatase 60, Total Protein 7.5, Albumin 3.8, Amylase Level 65, Lipase 22, Triglycerides Level 94, Cholesterol Level 173, LDL Cholesterol Direct 136H, VLDL Cholesterol 19, HDL Cholesterol 32L 10/19/19 05:39: White Blood Count 6.1, Red Blood Count 4.79, Hemoglobin 14.9, Hematocrit 44, Mean Corpuscular Volume 92, Mean Corpuscular Hemoglobin 31, Mean Corpuscular Hemoglobin Concent 34, Red Cell Distribution Width 14.4, Platelet Count 108L, Mean Platelet Volume 11.0H, Neutrophils (%) (Auto) 59, Lymphocytes (%) (Auto) 28, Monocytes (%) (Auto) 8, Eosinophils (%) (Auto) 4, Basophils (%) (Auto) 0, Neutrophils # (Auto) 3.6, Lymphocytes # (Auto) 1.7, Monocytes # (Auto) 0.5, Eosinophils # (Auto) 0.3, Basophils # (Auto) 0.0 Microbiology 10/18/19 Influenza Types A,B Antigen (TYSON) - Final, Complete A/P-Cardiology Assessment/Admission Diagnosis Chest pain of undetermined etiology, non-cardiac (see below) MPI on 10/19/19: no ischemia or infarction, LVEF 69% Echo on 10/19/19: LVEF 55-60%, no regional wall motion abnormality HTN 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 No evidence of ischemia or infarction or cardiomyopathy or CHF. Cardiac risk for non-cardiac surgery is estimated to be relatively low. Risk factor modification advised Clinical Quality Measures AMI/AHF: ASA po Prior to arrival: No DVT/VTE Risk/Contraindication: Risk Factor Score Per Nursin RFS Level Per Nursing on Admit: 1=Low/No VTE PPX ARACELI FAJARDO MD FACP FAC CCDS Oct 19, 2019 18:13
[2019-10-19] MEDS ORDERED: ENOXAPARIN 40 MG/0.4 ML (LOVENOX) SYR SC SCH (21:00)
--- NOTE | 2019-10-19 21:45 | NUR ---
PT HAD SHOWN ME PRESCRIPTION BOTTLE FOR SYNTHROID 125 MCG. PT IS WORRIED ABOUT MISSING DOSES. DR ROSARIO NOTIFIED AND SAID ORDER WAS OK. THIS RN DID ENTER ORDER INTO [employer], SCHEDULED FOR 629. PT NOTIFIED.
[2019-10-20 00:13] VITALS: BP 122/70
[2019-10-20 04:32] VITALS: BP 122/67
[2019-10-20] MEDS ORDERED: LEVOTHYROXINE 125 MCG (LEVOTHROID) TABLET PO SCH (06:30)
[2019-10-20 07:48] VITALS: BP 135/61
[2019-10-20] MEDS: PANTOPRAZOLE 40 MG (PROTONIX) VIAL IV SCH (08:13)
[2019-10-20] MEDS: ASPIRIN E.C. 81 MG (ECOTRIN) TAB PO SCH (08:13)
[2019-10-20] MEDS: 1/2 NS IV SOLUTION 1,000 ML IV SCH (08:14)
--- NOTE | 2019-10-20 09:06 | Progress Note - Surgery ---
[facility] [place] 10/20/19 0906: Subjective Date Seen by a Provider: Oct 20, 2019 Time Seen by a Provider: 08:11 Subjective/Events-last exam Patient seen and examined. Patient is feeling okay. Patient states that he feels a little better than when he first came in to the hospital. Pain occurs with cough and when the patient's sternum is palpated. Review of Systems General: No Chills, No Other (fevers) HEENT: No Ear Pain Pulmonary: No Dyspnea; Cough Cardiovascular: No: Chest Pain, Palpitations Gastrointestinal: No: Nausea, Vomiting Musculoskeletal: other (joint pain in knees); No: neck pain Neurological: No: Weakness, Numbness Objective Exam Vital Signs Date Time Temp Pulse Resp B/P (MAP) Pulse Ox O2 Delivery O2 Flow Rate FiO2 10/20/19 07:48 36.6 61 16 135/61 (85) 97 Room Air 10/20/19 07:00 60 10/20/19 04:32 36.8 63 20 122/67 (85) 95 Room Air 10/20/19 01:00 65 10/20/19 00:13 36.8 66 20 122/70 (87) 96 Room Air 10/19/19 20:00 98 Room Air 10/19/19 19:26 36.6 64 14 137/77 (97) 97 Room Air 10/19/19 19:00 62 10/19/19 15:19 36.4 64 18 144/88 (106) 96 Room Air 10/19/19 13:00 65 10/19/19 12:00 36.5 61 18 127/75 (92) 95 Room Air I & O 10/20/19 07:00 Intake Total 1342 ml Balance 1342 ml Capillary Refill : Less Than 3 Seconds General Appearance: No Apparent Distress, Obese HEENT: Pharynx Normal Neck: Non Tender, Supple Respiratory: Lungs Clear, No Accessory Muscle Use, No Respiratory Distress, Decreased Breath Sounds, Other (chest tender to palpation around the sternum. THis is the same pain that he describes having with a cough) Cardiovascular: Regular Rate, Rhythm, No Murmur Peripheral Pulses: 2+ Radial Pulses (R), 2+ Radial Pulses (L) Gastrointestinal: non tender, soft, distended Extremity: No Calf Tenderness, No Pedal Edema Neurologic/Psychiatric: Alert, Oriented x3, Normal Mood/Affect Skin: Normal Color, Warm/Dry; No Rash Results Lab Microbiology 10/18/19 Influenza Types A,B Antigen (TYSON) - Final, Complete Assessment/Plan Assessment/Plan Assessment/Plan Cholelithiasis, possibly causing chest pain MSK chest pain. Uncontrolled Hyperlipidemia Past History of Hep B Patient states he does not have a PCP, Recommend setting up a Primary care since he will be living in [place]. Hospitalist will be discharging him today. Schedule an appointment with Dr. Jean-Baptiste's office for a follow-up visit for Cholelithiasis. Clinical Quality Measures AMI/AHF: ASA po Prior to arrival: No DVT/VTE Risk/Contraindication: Risk Factor Score Per Nursin RFS Level Per Nursing on Admit: 1=Low/No VTE PPX LAUREN JEAN-BAPTISTE DO 10/20/19 0946: Subjective Time Seen by a Provider: 08:11 Subjective/Events-last exam Pt seen and examined, eating breakfast. No complaints. Review of Systems General: No Chills Pulmonary: No Dyspnea, No Cough Cardiovascular: No: Chest Pain, Palpitations Gastrointestinal: No: Nausea, Vomiting Objective Exam General Appearance: No Apparent Distress, Obese Respiratory: Lungs Clear, No Accessory Muscle Use, Decreased Breath Sounds Cardiovascular: Regular Rate, Rhythm, No Murmur Gastrointestinal: non tender, soft, distended Assessment/Plan Assessment/Plan Assessment/Plan Cholelithiasis - not sure it is cholecystitis, pt to follow up with Dr. Ortega in the office. Supervisory-Addendum Brief Verification & Attestation Participated in pt care: history, MDM, physical Personally performed: exam, history, MDM Care discussed with: Medical Student Procedures: n/a Verification and Attestation of Medical Student E/M Service A medical student performed and documented this service in my presence. I reviewed and verified all information documented by the medical student and made modifications to such information, when appropriate. I personally performed the physical exam and medical decision making. Lauren Jean-Baptiste, Oct 20, 2019,09:46 [facility] Oct 20, 2019 09:06 LAUREN JEAN-BAPTISTE DO Oct 20, 2019 09:46
[2019-10-20] MEDS ORDERED: FLU QUADRIvalent (5+ YOA) 2019-2020 (AFLURIA) 0.5 ML IM ONE (11:00)
[2019-10-20] MEDS ORDERED: ATOR80TA64 PO (11:00)
--- NOTE | 2019-10-20 11:07 | Discharge Summary ---
Discharge Summary Hospital Course Was the Problem List Reviewed?: Yes Problems/Dx: (1) Musculoskeletal chest pain Status: Acute (2) Essential hypertension Status: Chronic (3) Dyslipidemia Status: Chronic (4) Obesity Status: Chronic Qualifiers: (5) Coronary atherosclerosis Status: Chronic Hospital Course Date of Admission: Oct 18, 2019 at 23:45 Admission Diagnosis : Chest pain Family Physician/Provider: Brooke,Local Physician Date of Discharge: 10/20/19 Discharge Diagnosis: Musculoskeletal chest pain Hospital Course: Alan Leonard is a 54-year-old [place] male who presented with chest pain. His evaluation indicated that it is likely musculoskeletal in origin. He underwent a cardiac stress test which was normal. He had an echocardiogram which was normal. Imaging did show gallstones which may have been contributing to his pain. Surgery was consulted and the will likely perform a cholecystectomy as an outpatient. His other workup revealed dyslipidemia and he was started on a statin. Weight loss was encouraged to reduce his risk of cardiovascular disease as well. He should follow-up with his Primary care physician. He should follow-up with surgery. Labs and Pending Lab Test: Microbiology 10/18/19 Influenza Types A,B Antigen (TYSON) - Final, Complete Home Meds Active Lipitor (Atorvastatin Calcium) 80 Mg Tablet 80 Mg PO HS 90 Days Reported Amlodipine Besylate 5 Mg Tablet 5 Mg PO DAILY Enalapril Maleate 20 Mg Tablet 20 Mg PO DAILY Levothyroxine Sodium 150 Mcg Tablet 150 Mcg PO DAILY Assessment/Pt Instructions Take medications as prescribed. Begin taking Lipitor for high cholesterol. Follow-up with surgery for cholecystectomy. Discharge Planning: <30 minutes discharge planning Discharge Instructions Discharge Diet: No Restrictions Activity as Tolerated: Yes Pneumonia Vaccine Order Indica: Yes Discharge Physical Examination Vital Signs Vital Signs Date Time Temp Pulse Resp B/P (MAP) Pulse Ox O2 Delivery O2 Flow Rate FiO2 10/20/19 08:00 97 Room Air 10/20/19 07:48 36.6 61 16 135/61 (85) General Appearance: No Apparent Distress, Obese Respiratory: Lungs Clear, Normal Breath Sounds, No Respiratory Distress, Other (Parasternal chest tenderness) Cardiovascular: Regular Rate, Rhythm, No Edema, No Murmur Gastrointestinal: Normal Bowel Sounds, Non Tender, Soft Extremity: Normal Inspection, Non Tender, No Pedal Edema Skin: Normal Color, Warm/Dry Neurologic/Psychiatric: Alert, Oriented x3, No Motor/Sensory Deficits, Normal Mood/Affect Allergies: Coded Allergies: Penicillins (Verified Allergy, Unknown, 10/18/19) Discharge Summary Date of Admission Oct 18, 2019 at 23:45 Date of Discharge Discharge Date: Oct 20, 2019 Discharge Time: 11:06 Admission Diagnosis Chest pain Consults/Procedures Consulations Cardiology, general surgery Discharge Diagnosis Musculoskeletal chest pain (1) Musculoskeletal chest pain Status: Acute (2) Essential hypertension Status: Chronic (3) Dyslipidemia Status: Chronic (4) Obesity Status: Chronic Qualifiers: (5) Coronary atherosclerosis Status: Chronic Clinical Quality Measures AMI/AHF: ASA po Prior to arrival: No DVT/VTE Risk/Contraindication: Risk Factor Score Per Nursin RFS Level Per Nursing on Admit: 1=Low/No VTE PPX MIGUEL CARRION MD Oct 20, 2019 11:07
== END 2019-10-20 11:50 | disposition home or self-care (01) ==
LOC: ER 19:34 → 4TH 23:45
PROVIDERS: ADMIT Internal Medicine; ATTEND Internal Medicine
DX: R07.89 Other chest pain (principal); K80.20 Calculus of gallbladder without cholecystitis without obstruction; I10 Essential (primary) hypertension; E78.5 Hyperlipidemia, unspecified; E66.9 Obesity, unspecified; I25.10 Atherosclerotic heart disease of native coronary artery without angina pectoris; E89.0 Postprocedural hypothyroidism; Z88.0 Allergy status to penicillin; Z23 Encounter for immunization; Z68.37 Body mass index [BMI] 37.0-37.9, adult; Z86.19 Personal history of other infectious and parasitic diseases
CPT/HCPCS: 36415; 71045; 71275; 76705; 78452; 80053; 80061; 80306; 82150; 82550; 82553; 83690; 83735; 83874; 83880; 84484; 85025; 85610; 85730; 87804; 93005; 93017; 93041; 93306

== ENCOUNTER 2022-08-02 11:19 | Emergency (ER) | payer BC ==
[~2022-08-02] VITALS: Ht 165 cm; Wt 109.0 kg
[~2022-08-02 11:19] MED LIST: AMLO-250 PO; ATOR80TA64 PO; ENAL20TA16 PO; LEVO150T6 PO
[2022-08-02] MEDS ORDERED: OXYMETAZOLINE (AFRIN) 0.05% NA 30 ML BTL STA (11:40)
--- NOTE | 2022-08-02 11:41 | ED EENT ---
History of Present Illness General Chief Complaint: Nasal Problems Stated Complaint: BLEEDING NOSE Nursing Triage Note: NOSE BLEED STARTING YESTERDAY. Source: patient Exam Limitations: no limitations History of Present Illness Date Seen by Provider: Aug 02, 2022 Time Seen by Provider: 11:30 Initial Comments 57-year-old male with past medical history of elevated blood pressure coming in due to a nosebleed. Started yesterday, intermittent, worsening today. Has had nosebleeds before, but this 1 is a little bit worse. Denies any trauma to his nose, and does not take any blood thinners. Otherwise denying any other acute complaints. Allergies and Home Medications Allergies Coded Allergies: Penicillins (Verified Allergy, Unknown, 10/18/19) Patient Home Medication List Home Medication List Reviewed: Yes Amlodipine Besylate (Amlodipine Besylate) 5 Mg Tablet, 5 MG PO DAILY, (Reported) Entered as Reported by: RANDY VELEZ on 10/19/19 1443 Atorvastatin Calcium (Lipitor) 80 Mg Tablet, 80 MG PO HS Prescribed by: MIGUEL CARRION on 10/20/19 1100 Enalapril Maleate (Enalapril Maleate) 20 Mg Tablet, 20 MG PO DAILY, (Reported) Entered as Reported by: RANDY VELEZ on 10/19/19 1443 Levothyroxine Sodium (Levothyroxine Sodium) 150 Mcg Tablet, 150 MCG PO DAILY, (Reported) Entered as Reported by: RANDY VELEZ on 10/19/19 1443 Review of Systems Review of Systems Constitutional: No fever Eyes: No Symptoms Reported Ears: No Symptoms Reported Nose: see HPI Mouth: no symptoms reported Throat: no symptoms reported Respiratory: no symptoms reported Cardiovascular: no symptoms reported Gastrointestinal: no symptoms reported Musculoskeletal: no symptoms reported Skin: no symptoms reported Neurological: No Symptoms Reported Hematologic/Lymphatic: No Symptoms Reported Immunological/Allergic: no symptoms reported All Other Systems Reviewed Negative Unless Noted: Yes Past Wlwdzck-Rpnpxs-Vfwczo Hx Patient Social History Tobacco Use?: Yes Smoking Status: Former Smoker Substance use?: No Alcohol Use?: Yes Alcohol Frequency: Once in a while Immunizations Up To Date Second COVID19 Vaccination Aleks: UNKNOWN COVID19 Vaccine Roller Picker: UNKNOWN Seasonal Allergies Seasonal Allergies: No Past Medical History Surgeries: Yes Thyroidectomy Respiratory: No Cardiac: Yes Hypertension Neurological: No Genitourinary: No Gastrointestinal: No Musculoskeletal: No Endocrine: Yes (S/P THYROIDECTOMY--STATES WAS NOT CANCER, BUT UNABLE TO STATE WHY REMOVED) Hypothyroidsim HEENT: No Cancer: No Psychosocial: No Integumentary: No Blood Disorders: No Family Medical History No Pertinent Family Hx Physical Exam Vital Signs Vital Signs - First Documented 08/02/22 11:36 Pulse 77 Resp 16 B/P (MAP) 142/87 (105) Pulse Ox 96 O2 Delivery Room Air Height, Weight, BMI Height: '" Weight: lbs. oz. kg; 40.00 BMI Method: General Appearance: WD/WN, no apparent distress Eyes: bilateral eye normal inspection Ears: bilateral ear auricle normal Nose: dried blood, other (Mild amount of active bleeding) Mouth/Throat: normal mouth inspection, pharynx normal Neck: non-tender, full range of motion, supple, normal inspection Cardiovascular: regular rate, rhythm, no edema, no murmur Respiratory: chest non-tender, lungs clear, normal breath sounds, no respiratory distress, no accessory muscle use Gastrointestinal: normal bowel sounds, non tender, soft; No distended, No guarding, No rebound Neurologic/Psychiatric: no motor/sensory deficits, alert Skin: normal color, warm/dry Progress/Results/Core Measures Results/Orders My Orders Orders - MARKUS FROST MD Oxymetazoline 0.05% Nasal [place] (Afrin 0. (08/02/22 11:40) Tranexamic Acid Injection (Cyklokapron I (08/02/22 12:45) Vital Signs/I&O 08/02/22 11:36 Pulse 77 Resp 16 B/P (MAP) 142/87 (105) Pulse Ox 96 O2 Delivery Room Air Blood Pressure Mean: 105 Progress Progress Note : Progress Note 57-year-old male with above history coming in due to epistaxis. He did have some minimal bleeding from the right nare on arrival. Afrin was sprayed in each nostril as well as pressure afterwards which essentially stopped the bleeding. TXA then sprayed with an atomizer to ensure the bleeding has stopped. Patient stable for discharge with outpatient follow-up. He was sent home with strict return precautions. Likely the bleeding was related to the cold weather. Departure Impression Primary Impression: Epistaxis Disposition: HOME, SELF-CARE Condition: Stable Departure-Patient Inst. Decision time for Depature: 13:01 Referrals: NANCY GARCÍA APRN (PCP) Primary Care Physician [facility] [place] [facility] (Family) Primary Care Physician CHARLEEN MELO MD Patient Instructions: Nosebleeds Add. Discharge Instructions: Typically we see nosebleeds this time a year due to the cold weather and the dry air. I recommend getting a humidifier in his room when he sleeps. If the bleeding starts again, spray 2 sprays of that medicine in each nostril, and then hold pressure for 15 minutes. If the bleeding continues after this, repeat this process once. If you have severe bleeding after that, I recommend coming to the ER. If this becomes a persistent problem, I would call Dr. Melo, to schedule an evaluation Work/School Note: Family Work Note, Patient Received Medical Care In the Emergency Department On: Aug 02, 2022 Patient Will Be Able to Return to Work/School On: Aug 03, 2022 Work Release Form Date Seen in the Emergency Department: Aug 02, 2022 Return to Work: Aug 03, 2022 Restrictions: No Restrictions MARKUS FROST MD Aug 02, 2022 11:41
[2022-08-02] MEDS ORDERED: TRANEXAMIC ACID 100 MG/ML 10 ML INJECTION ONE (12:45)
[2022-08-02 13:19] VITALS: BP 142/87
== END 2022-08-02 13:19 | disposition home or self-care (01) ==
LOC: EDUNIT# 11:19 → ER 11:21
DX: R04.0 Epistaxis (principal); Z87.891 Personal history of nicotine dependence
CPT/HCPCS: 99281